=== PATIENT | male | born 1950 | race Caucasian/White ===

== ENCOUNTER 2017-08-22 07:59 | Inpatient (IN) | payer BC, MEDICARE ==
[~2017-08-22] VITALS: Ht 180.3 cm; Wt 117.0 kg
--- NOTE | 2017-08-22 08:10 | NUR ---
PT BIB FAMILY C/O RECTAL BLEEDING, BRIGHT RED, WHICH STARTED ON SUNDAY FOR MULTIPLE EPISODES, STOPPED ON SUNDAY, AND RESUMED BLEEDING THIS MORNING. DENIES N/V. DENIES URINARY SYMPTOMS. ABD SOFT, NON-TENDER. SKIN WARM NONDIAPHORETIC. CAP REFILL WNL. AMBULATORY WITH STEADY GAIT. NAD NOTED. IN ER BED 09 ON MONITOR.
[2017-08-22] MEDS ORDERED: ONDANSETRON HCL/PF 4 MG/2 ML VIAL ONE (08:22)
[2017-08-22] MEDS ORDERED: PANTOPRAZOLE 40 MG VIAL ONE (08:22)
[2017-08-22] MEDS ORDERED: PANTOPRAZOLE 40 MG VIAL IV ONE (08:30)
[2017-08-22] MEDS ORDERED: IV NS 0.9% 1,000 ML BAG IV ONE (08:30)
[2017-08-22] MEDS ORDERED: ONDANSETRON HCL/PF 4 MG/2 ML VIAL IVP ONE (08:30)
[2017-08-22 08:41] LABS: BASOPHILS # (AUTO) 0.1 /CMM (0.0-0.2); BASOPHILS % (AUTO) 0.7 % (0.0-2.0); EOSINOPHILS # (AUTO) 0.1 /CMM (0.0-0.7); EOSINOPHILS % (AUTO) 1.5 % (0.0-6.0); HEMATOCRIT 26 % (39-51); HEMOGLOBIN 8.3 g/dL (13.5-17.5); LYMPHOCYTES # (AUTO) 1.9 /CMM (0.8-4.8); LYMPHOCYTES % (AUTO) 22.9 % (20.0-44.0); MEAN CORPUSCULAR HEMOGLOBIN 28 PG (26.0-33.0); MEAN CORPUSCULAR HGB CONC 33 g/dl (31.0-36.0); MEAN CORPUSCULAR VOLUME 85 fL (80-96); MONOCYTES # (AUTO) 0.6 /CMM (0.1-1.30); MONOCYTES % (AUTO) 7.4 % (2.0-12.0); NEUTROPHILS # (AUTO) 5.6 /CMM (1.8-8.9); NEUTROPHILS % (AUTO) 67.5 % (43.0-81.0); PLATELET COUNT (AUTO) 298 /CMM (150-450); RDW COEFFICIENT OF VARIATION 16.7 (11.5-15.0); WHITE BLOOD COUNT (AUTO) 8.3 K/uL (4.3-11.0)
[2017-08-22 09:00] LABS: BILIRUBIN,TOTAL 0.2 mg/dL (0.2-1.0); POTASSIUM 3.9 mmol/L (3.5-5.1); TOTAL PROTEIN, SERUM 6.9 g/dL (6.4-8.2)
[2017-08-22 09:01] LABS: INR 0.88 (0.87-1.13); PROTHROMBIN TIME 9.1 SECS (9.5-12.7)
[2017-08-22 09:02] LABS: TROPONIN I 0.096 ng/mL (0.00-0.056)
--- NOTE | 2017-08-22 09:08 | NUR ---
PAGED [facility] --- MACHINE HOOP MAKER HELPER IS DR DAMON
--- NOTE | 2017-08-22 10:00 | NUR ---
RESTING QUIETLY, NAD NOTED. ALL NEEDS ATTENDED TO.
[2017-08-22] MEDS ORDERED: IV NS 0.9% 1,000 ML IV PRN (10:23)
[2017-08-22] MEDS ORDERED: Z GUARD REMEDY 2 OZ OINT TP PRN (10:30)
[2017-08-22] MEDS ORDERED: ACETAMINOPHEN 325 MG TABLET PO PRN (10:30)
[2017-08-22] MEDS ORDERED: ZOLPIDEM TARTRATE 5 MG TABLET PO PRN (10:30)
[2017-08-22] MEDS ORDERED: MAG HYDROX/AL HYDROX/SIMETH 30 ML UDC PO PRN (10:30)
[2017-08-22] MEDS ORDERED: HYDROCODONE/APAP 5/325MG 1 EACH TABLET PO PRN (10:30)
[2017-08-22] MEDS ORDERED: ONDANSETRON HCL/PF 4 MG/2 ML VIAL IVP PRN (10:30)
[2017-08-22] MEDS ORDERED: MAGNESIUM HYDROXIDE 30 ML UDC PO PRN (10:30)
--- NOTE | 2017-08-22 12:07 | NUR ---
RESTING QUIETLY, NAD NOTED. VERIFIED PT'S ADMISSION STATUS TO THE [facility] WITH DR DAMON. PT TRANSPORTED TO [facility] IN STABLE CONDITION VIA ACLS PROTOCOL
--- NOTE | 2017-08-22 12:20 | NUR ---
PRICING SUPERVISOR TO TELE RECEIVED PATIENT FROM E.D. DEPT. ALERT AND ORIENTED X4, NO S/SX OF DISTRESS AT THIS TIME, PER PATIENT LAST BLOODY STOOL WAS THIS AM AT HOME, PIV ON RIGHT AC AND LEFT HAND PATENT AND FLUSHES WELL, PATIENT DENIES FEELING LETHARGIC OF HEADACHE OR DIZZINESS, TELE MONITOR SHOWS NSR, SKIN ASSESSMENT COMPLETED, SKIN DRY AND INTACT, ALL NEEDS ATTENDED AND MET, CALL LIGHT WITHIN REACH, WILL CONTINUE TO MONITOR.
[2017-08-22 12:30] VITALS: BP 133/61
[2017-08-22] MEDS ORDERED: METF500T4 PO (15:25)
[2017-08-22] MEDS ORDERED: SITA100T PO (15:25)
[2017-08-22] MEDS ORDERED: PIOG30TA2 PO (15:25)
[2017-08-22] MEDS ORDERED: ATOR80TA PO (15:25)
[2017-08-22] MEDS ORDERED: METF10002 PO (15:25)
[2017-08-22] MEDS ORDERED: FENO54TA PO (15:25)
[2017-08-22] MEDS ORDERED: VALS160T2 PO (15:25)
[2017-08-22 16:00] VITALS: BP 130/76
--- NOTE | 2017-08-22 16:00 | NUR ---
[facility] COLEY MED RECONCILIATION INPUTTED, DR. DAMON MADE AWARE OF MED RECON LIST. Addendum: 08/22/17 at 1841 by SANA SANCHEZ RN CORRECTION: SUKH COLEY
[2017-08-22] MEDS ORDERED: hydrALAZINE HCL 25 MG TABLET PO PRN (18:00)
--- NOTE | 2017-08-22 18:39 | NUR ---
BOX OFFICE AGENT NOTES PATIENT SEEN AND EXAMINED BY DR. DAMON, RECEIVED NEW ORDERS. ORDERS NOTED AND CARRIED OUT. PATIENT IS SCHEDULED FOR COLONOSCOPY IN AM. PREPARATION TO START TONIGHT. PATIENT AWARE AND VERBALIZED UNDERSTANDING. IVF HYDRATION ONGOING AND TOLERATING WELL, ALL NEEDS ATTENDED AND MET, SAFETY MEASURES IN PLACED, WILL ENDORSE TO NIGHT CLEANER FOR ADAM. Addendum: 08/22/17 at 1842 by SANA SANCHEZ RN ADDENDUM: DR. DAMON MADE AWARE OF 2 BLOODY STOOLS DURING THIS SHIFT.
[2017-08-22] MEDS ORDERED: PEG 3350/NA SULF,BICARB,CL/KCL 4,000 ML BOTTLE PO ONE (19:00)
--- NOTE | 2017-08-22 19:20 | NUR ---
RN NOTES RECEIVED PT AWAKE, SITING IN BED. PT ALERT AND ORIENTED X4, DENIES ANY PAIN AND DISCOMFORT AT THIS TIME, ON ROOM AIR AND TOLERATED WELL. TELE MONITOR READS SINUS RHYTHM AT 96. IV ACCESS ON LEFT HAND PATENT AND INTACT WITH ONGOING IVF INFUSING WELL. PT IS AMBULATORY WITH STEADY GAIT. PLAN OF CARE DISCUSSED WITH THE PT. WILL CONTINUE TO MONITOR PT.
[2017-08-22 20:00] VITALS: BP 157/85
--- NOTE | 2017-08-22 20:40 | NUR ---
RN NOTES SPOKE TO DR ORLANDO TO GET AN ORDER OF COLONOSCOPY. SHE SAID TO GET THE ORDER TO DR CARMONA.
--- NOTE | 2017-08-22 21:00 | NUR ---
RN NOTES BEEN TRYING TO REACH DR CARMONA TO GET AN ORDER FOR COLONOSCOPY, NO ANSWER AND NO CALL BACK RECEIVED.
[2017-08-22 22:00] VITALS: BP 157/85
[2017-08-23] VITALS (10 sets, daily range): BP systolic 113–155; BP diastolic 55–95
[2017-08-23] MEDS ORDERED: MAGNESIUM CITRATE 296 ML BOTTLE PO ONE (05:00)
--- NOTE | 2017-08-23 06:15 | NUR ---
RN NOTES DR CUNNINGHAM MADE AWARE PT WAS REFFERED BY DR DAMON YESTERDAY AND HAS PLANNED COLONOSCOPY TODAY. PER DR CUNNINGHAM HE WILL DO EGD AND COLONOSCOPY TODAY AND WILL PLACE THE ORDER.
--- NOTE | 2017-08-23 07:15 | NUR ---
RN OPEN NOTES RECEIVED REPORT FROM THIRD OFFICER NURSE. PATIENT IS IN BED. PATIENT IS ALERT AND ORIENTED TO NAME, PLACE AND TIME. NO SIGNS AND SYMPTOMS OF DISTRESS. WILL CONTINUE TO MONITOR AND ASSESS PATIENT THROUGH OUT MY SHIFT
[2017-08-23 07:18] LABS: BASOPHILS % (AUTO) 0.2 % (0.0-2.0); EOSINOPHILS # (AUTO) 0.1 /CMM (0.0-0.7); EOSINOPHILS % (AUTO) 1.2 % (0.0-6.0); HEMATOCRIT 21 % (39-51); LYMPHOCYTES # (AUTO) 1.6 /CMM (0.8-4.8); MEAN CORPUSCULAR HEMOGLOBIN 28 PG (26.0-33.0); MEAN CORPUSCULAR HGB CONC 34 g/dl (31.0-36.0); MEAN CORPUSCULAR VOLUME 84 fL (80-96); MONOCYTES # (AUTO) 0.6 /CMM (0.1-1.30); MONOCYTES % (AUTO) 8.6 % (2.0-12.0); NEUTROPHILS # (AUTO) 4.5 /CMM (1.8-8.9); PLATELET COUNT (AUTO) 252 /CMM (150-450); RDW COEFFICIENT OF VARIATION 16.4 (11.5-15.0); RED BLOOD CELL COUNT(AUTO) 2.48 MIL/uL (4.5-6.0); WHITE BLOOD COUNT (AUTO) 6.8 K/uL (4.3-11.0)
--- NOTE | 2017-08-23 07:30 | NUR ---
RN NOTES PT AWAKE IN BED, DENIES ANY PAIN AND DISCOMFORT. VITAL SIGNS STABLE. NO EPISODE OF NAUSEA AND VOMITING. TELE MONITOR READS SINUS RHYTHM AT 92. KEPT PT ON NPO FOR PLANNED COLONOSCOPY TODAY, BM CLEAR. ALL NEEDS ATTENDED WILL CONTINUE TO MONITOR PT.
[2017-08-23 07:38] LABS: CALCIUM, SERUM 8.5 mg/dL (8.5-10.1); CREATININE 0.9 mg/dL (0.6-1.3); MAGNESIUM 1.7 mg/dL (1.8-2.4); PHOSPHORUS 3.4 mg/dL (2.5-4.9); POTASSIUM 3.9 mmol/L (3.5-5.1)
--- NOTE | 2017-08-23 08:15 | NUR ---
CONSENT SIGNED BY PATIENT AND PLACED IN THE CHART.
[2017-08-23] MEDS: PANTOPRAZOLE 40 MG VIAL IV SCH (08:25)
[2017-08-23] MEDS: VALSARTAN 80 MG TABLET PO SCH ×2 (08:26→08:32)
[2017-08-23] MEDS ORDERED: ATORVASTATIN 40 MG TABLET PO SCH (09:00)
--- NOTE | 2017-08-23 09:15 | NUR ---
PATIENT IS OFF THE FLOOR FOR PROCEDURE
--- NOTE | 2017-08-23 11:00 | NUR ---
PATIENT RETURNED TO FLOOR
[2017-08-23] MEDS ORDERED: Magnesium 1GM/D5W 100ML PREMIX 100 ML IV SCH (11:30)
--- NOTE | 2017-08-23 14:20 | NUR ---
DR DAMON AT BEDSIDE
[2017-08-23] MEDS: Magnesium 1GM/D5W 100ML PREMIX 100 ML IV SCH ×2 (15:05→16:30)
[2017-08-23] MEDS ORDERED: FUROSEMIDE 20 MG/2 ML VIAL IV ONE (15:31)
[2017-08-23 15:44] LABS: HEMOGLOBIN 8.5 g/dL (13.5-17.5)
[2017-08-23] MEDS: ATORVASTATIN 40 MG TABLET PO SCH (17:48)
--- NOTE | 2017-08-23 18:10 | NUR ---
DR DICKERSON AT BEDSIDE
--- NOTE | 2017-08-23 18:41 | NUR ---
RN CLOSING NOTES PATIENT IS ALERT AND ORIENTED TO NAME, PLACE AND TIME. NO SIGNS AND SYMPTOMS OF DISTRESS. IV SITE IS INTACT AND PATENT. BED IN LOW POSITION, LOCKED AND TWO SIDE RAILS ARE UP. CALL LIGHT WITHIN REACH FOR SAFETY. ALL NURSING CARE ANTICIPATED AND ATTENDED FOR. PATIENT REMAINED DRY AND CLEAN. WILL ENDORSE TO ASSISTANT MERCHANDISER NURSE
--- NOTE | 2017-08-23 19:30 | NUR ---
RN OPEN NOTES RECEIVED PATIENT AWAKE IN BED WITH FAMILY AT BEDSIDE. A/O X4. NO SIGNS OF DISTRESS OR DISCOMFORT. BREATHING EVEN AND UNLABORED. IV ACCESS IN L HAND WITH NS INFUSING, PATENT AND INTACT, NO SIGNS OF REDNESS OR INFILTRATION. BED IN LOW LOCKED POSITION WITH SIDE RAILS X2. CALL LIGHT WITHIN REACH. WILL CONTINUE TO MONITOR.
--- NOTE | 2017-08-24 06:49 | NUR ---
RN CLOSING NOTES PATIENT AWAKE IN BED WITH FAMILY AT BEDSIDE. A/O X4. NO SIGNS OF DISTRESS OR DISCOMFORT. BREATHING EVEN AND UNLABORED. IV ACCESS IN L HAND, PATENT AND INTACT, NO SIGNS OF REDNESS OR INFILTRATION. PATIENT REFUSING IVF AT THIS TIME. ALL NEEDS MET. NO SIGNIFICANT CHANGES THROUGH THE NIGHT. BED IN LOW LOCKED POSITION WITH SIDE RAILS X2. CALL LIGHT WITHIN REACH. WILL ENDORSE TO AM SHIFT FOR ADAM.
--- NOTE | 2017-08-24 07:20 | NUR ---
RN OPEN NOTES RECEIVED REPORT FROM LENS GRINDING MACHINE OPERATOR NURSE. PATIENT IS IN BED, AWAKE, ALERT AND ORIENTED TO NAME, PLACE AND TIME. NO SIGNS AND SYMPTOMS OF DISTRESS. DENIED PAIN. WILL CONTINUE TO MONITOR AND ASSES PATIENT THROUGH OUT MY SHIFT
[2017-08-24 07:22] LABS: BASOPHILS % (AUTO) 0.1 % (0.0-2.0); EOSINOPHILS # (AUTO) 0.1 /CMM (0.0-0.7); EOSINOPHILS % (AUTO) 1.5 % (0.0-6.0); HEMATOCRIT 25 % (39-51); HEMOGLOBIN 8.4 g/dL (13.5-17.5); LYMPHOCYTES # (AUTO) 1.5 /CMM (0.8-4.8); LYMPHOCYTES % (AUTO) 18.9 % (20.0-44.0); MEAN CORPUSCULAR HEMOGLOBIN 29 PG (26.0-33.0); MEAN CORPUSCULAR HGB CONC 34 g/dl (31.0-36.0); MEAN CORPUSCULAR VOLUME 85 fL (80-96); MONOCYTES # (AUTO) 0.6 /CMM (0.1-1.30); MONOCYTES % (AUTO) 7.4 % (2.0-12.0); NEUTROPHILS # (AUTO) 5.7 /CMM (1.8-8.9); NEUTROPHILS % (AUTO) 72.1 % (43.0-81.0); PLATELET COUNT (AUTO) 279 /CMM (150-450); RDW COEFFICIENT OF VARIATION 16.8 (11.5-15.0); RED BLOOD CELL COUNT(AUTO) 2.96 MIL/uL (4.5-6.0); WHITE BLOOD COUNT (AUTO) 7.8 K/uL (4.3-11.0)
[2017-08-24 07:40] LABS: CALCIUM, SERUM 8.4 mg/dL (8.5-10.1); PHOSPHORUS 3.3 mg/dL (2.5-4.9); POTASSIUM 3.7 mmol/L (3.5-5.1)
[2017-08-24 07:59] LABS: THYROID STIMULATING HORMONE 1.633 uIU/mL (0.358-3.74)
[2017-08-24 08:00] VITALS: BP 145/76
[2017-08-24] MEDS ORDERED: DIATR MEGLU/DIATRIZOATE SODIUM 120 ML BOTTLE (GASTROGRAPHIN) ONE ×2 (08:28→09:19)
[2017-08-24] MEDS: VALSARTAN 80 MG TABLET PO SCH (09:00)
--- NOTE | 2017-08-24 09:00 | NUR ---
PO MEDS HELD D/T PATIENT NPO FOR SMALL BOWEL XR
[2017-08-24] MEDS: PANTOPRAZOLE 40 MG VIAL IV SCH (11:13)
[2017-08-24 16:00] VITALS: BP 135/68
[2017-08-24] MEDS: ATORVASTATIN 40 MG TABLET PO SCH (17:11)
--- NOTE | 2017-08-24 18:44 | NUR ---
RN CLOSING NOTES PATIENT IS ALERT AND ORIENTED TO NAME, PLACE AND TIME. NO SIGNS AND SYMPTOMS OF DISTRESS. IV SITE IS INTACT AND PATENT. BED IN LOW POSITION, LOCKED AND TWO SIDE RAILS ARE UP. CALL LIGHT WITHIN REACH FOR SAFETY. ALL NURSING CARE ANTICIPATED AND ATTENDED FOR. PATIENT REMAINED DRY AND CLEAN. WILL ENDORSE TO COREMAKING MACHINE SETTER NURSE
--- NOTE | 2017-08-24 19:30 | NUR ---
RN NOTES RECEIVED PATIENT IN BED AWAKE, AO X 3, ABLE TO MAKE NEEDS KNOWN. NO ACUTE DISTRESS NOTED. DENIES ANY PAIN AT THIS TIME. IV SITE PATENT, INTACT; FLUSHED. ON LOW BED WITH BILATERAL UPPER SIDE RAILS UP. CALL LIGHT WITHIN EASY REACH. WILL CONTINUE TO MONITOR.
[2017-08-24 20:00] VITALS: BP_SYST 135; BP_SYST 145; BP_DIAS 68; BP_DIAS 72
--- NOTE | 2017-08-25 06:09 | NUR ---
RN NOTES PATIENT ASLEEP, EASILY AROUSABLE. RESPIRATIONS EVEN. NO SIGNS OF PAIN NOTED. NEEDS ATTENDED. SAFETY PRECAUTIONS AND COMFORT MEASURES IN PLACE. WILL GIVE REPORT TO DAY SHIFT FOR CONTINUITY OF CARE.
[2017-08-25 06:33] LABS: BASOPHILS % (AUTO) 0.4 % (0.0-2.0); EOSINOPHILS # (AUTO) 0.1 /CMM (0.0-0.7); EOSINOPHILS % (AUTO) 1.6 % (0.0-6.0); HEMATOCRIT 26 % (39-51); HEMOGLOBIN 8.5 g/dL (13.5-17.5); LYMPHOCYTES # (AUTO) 1.5 /CMM (0.8-4.8); LYMPHOCYTES % (AUTO) 20.1 % (20.0-44.0); MEAN CORPUSCULAR HEMOGLOBIN 28 PG (26.0-33.0); MEAN CORPUSCULAR HGB CONC 33 g/dl (31.0-36.0); MEAN CORPUSCULAR VOLUME 85 fL (80-96); MONOCYTES # (AUTO) 0.6 /CMM (0.1-1.30); MONOCYTES % (AUTO) 7.8 % (2.0-12.0); NEUTROPHILS # (AUTO) 5.3 /CMM (1.8-8.9); NEUTROPHILS % (AUTO) 70.1 % (43.0-81.0); PLATELET COUNT (AUTO) 291 /CMM (150-450); RDW COEFFICIENT OF VARIATION 16.8 (11.5-15.0); RED BLOOD CELL COUNT(AUTO) 3.05 MIL/uL (4.5-6.0); WHITE BLOOD COUNT (AUTO) 7.6 K/uL (4.3-11.0)
[2017-08-25 06:48] LABS: CALCIUM, SERUM 8.5 mg/dL (8.5-10.1); CREATININE 0.9 mg/dL (0.6-1.3); MAGNESIUM 1.8 mg/dL (1.8-2.4); PHOSPHORUS 3.9 mg/dL (2.5-4.9); POTASSIUM 3.9 mmol/L (3.5-5.1)
[2017-08-25 08:00] VITALS: BP 130/78
[2017-08-25 08:07] LABS: IMMUNOGLOBULIN A, SERUM 123 mg/dL (61-437); IMMUNOGLOBULIN G, SERUM 834 mg/dL (700-1600); IMMUNOGLOBULIN M, SERUM 124 mg/dL (20-172)
[2017-08-25 10:28] VITALS: BP 130/78
[2017-08-25] MEDS: VALSARTAN 80 MG TABLET PO SCH (10:28)
[2017-08-25] MEDS: PANTOPRAZOLE 40 MG VIAL IV SCH (10:28)
[2017-08-25] MEDS ORDERED: OMEP20TA68 PO (12:18)
[2017-08-25] MEDS ORDERED: FERR-58 PO (12:18)
[2017-08-25] MEDS ORDERED: SOD FERRIC GLUC 125 MG in IV NS 0.9% 100 ML IV SCH (14:00)
--- NOTE | 2017-08-25 15:20 | NUR ---
DR. DAMON IN PT. GIVEN DC ORDER.HAD IV FERLICETTE.DC INSTRUCTIONS GIVEN.HEP LOCK OUT. ALL PAPERS SIGNED.ADDITIONALLY HAS APPT. AT CLINIC FOR FOLLOW UP.TAKEN VIA W/C ACCOMPANIED BY INTELLIGENCE OPERATIONS SPECIALIST AND SIGNIFICANT OTHER TO LOBBY FOR DC.
[2017-08-27 07:07] LABS: *SPE ALPHA-1-GLOBULIN 0.3 g/dL (0.0-0.4); *SPE ALPHA-2-GLOBULIN 0.9 g/dL (0.4-1.0); *SPE BETA GLOBULIN 1.1 g/dL (0.7-1.3); *SPE M-SPIKE Not Observed g/dL (Not Observed); *SPEGAMMA GLOBULIN 0.7 g/dL (0.4-1.8)
== END 2017-08-25 15:15 | disposition home or self-care (01) | DRG 391 ==
LOC: ER 08:08 → TELE 12:11 → MED 08-23 08:48
PROVIDERS: ADMIT Internal Medicine; ATTEND Internal Medicine
PROC: 0DBP8ZX Excision of Rectum, Via Natural or Artificial Opening Endoscopic, Diagnostic (ICD-10-PCS; principal; 2017-08-23 09:59)
PROC: 0DBL8ZX Excision of Transverse Colon, Via Natural or Artificial Opening Endoscopic, Diagnostic (ICD-10-PCS; principal; 2017-08-23 09:59)
PROC: 30233N1 Transfusion of Nonautologous Red Blood Cells into Peripheral Vein, Percutaneous Approach (ICD-10-PCS; principal; 2017-08-23 09:59)
PROC: 0DBM8ZX Excision of Descending Colon, Via Natural or Artificial Opening Endoscopic, Diagnostic (ICD-10-PCS; principal; 2017-08-23 09:59)
PROC: 0DD68ZX Extraction of Stomach, Via Natural or Artificial Opening Endoscopic, Diagnostic (ICD-10-PCS; principal; 2017-08-23 09:59)
DX: K57.30 Diverticulosis of large intestine without perforation or abscess without bleeding (principal); I21.A1 Myocardial infarction type 2; E87.0 Hyperosmolality and hypernatremia; E44.1 Mild protein-calorie malnutrition; E11.9 Type 2 diabetes mellitus without complications; D50.9 Iron deficiency anemia, unspecified; E66.9 Obesity, unspecified; E78.5 Hyperlipidemia, unspecified; I10 Essential (primary) hypertension; K21.9 Gastro-esophageal reflux disease without esophagitis; Z91.018 Allergy to other foods; I70.0 Atherosclerosis of aorta; Z96.652 Presence of left artificial knee joint; Z82.49 Family history of ischemic heart disease and other diseases of the circulatory system; Z79.52 Long term (current) use of systemic steroids; Z79.84 Long term (current) use of oral hypoglycemic drugs; K63.5 Polyp of colon; K64.8 Other hemorrhoids; K42.9 Umbilical hernia without obstruction or gangrene; K29.60 Other gastritis without bleeding
CPT/HCPCS: 36415; 74250-TC; 80048-TC; 80061-TC; 80076-TC; 82728-TC; 82746; 82784; 83540-TC; 83690-TC; 83735-TC; 84100-TC; 84155; 84165; 84443-TC; 84484-TC; 85025-TC; 85027-TC; 85730-TC; 86334; 86850-TC; 86921-TC; 87081-TC; 88305-TC; 88313-TC; 88342; 93307-TC; A4606; C9113; J1940; J2405; J2704; J2916; J3475; J3490; J7030; P9016-BL; Q9963; Z7610

== ENCOUNTER 2017-12-02 09:25 | Inpatient (IN) | payer BC, MEDICARE ==
[~2017-12-02] VITALS: Ht 177.8 cm; Wt 114.8 kg
[2017-12-02] VITALS (7 sets, daily range): BP systolic 119–145; BP diastolic 60–77
[~2017-12-02 09:25] MED LIST: ATOR80TA PO; FENO54TA PO; FERR325T23 PO; METF10002 PO; METF500T4 PO; OMEP20TA5 PO; PIOG30TA10 PO; SITA100T PO; VALS160T2 PO
--- NOTE | 2017-12-02 09:30 | NUR ---
PT CAME TO ER W/ C/O BLOODY DIARRHEA X 3 DAYS, FEELING WEAK AND DIZZY. PT HAS A H/O DIVERTICULTIS. DENIES ANY PAIN AT THIS TIME. PT AMBULATORY IN A STEADY GAIT TO ED BED 04. NAD RR EVEN AND UNLABORED. SKIN IS WARM AND NON DIAPHORETIC. PENDING ER MD EVALUATION
--- NOTE | 2017-12-02 09:34 | NUR ---
DR DAVIS AT BEDSIDE FOR EVALUATION.
[2017-12-02] MEDS ORDERED: PANTOPRAZOLE 80 MG in IV NS 0.9% 500 ML IV ONE (10:00)
[2017-12-02] MEDS ORDERED: PANTOPRAZOLE 80 MG in IV NS 0.9% 100 ML IV ONE (10:00)
[2017-12-02] MEDS ORDERED: IV NS 0.9% 1,000 ML BAG IV ONE (10:00)
[2017-12-02 10:02] LABS: BASOPHILS # (AUTO) 0.2 /CMM (0.0-0.2); BASOPHILS % (AUTO) 1.7 % (0.0-2.0); EOSINOPHILS # (AUTO) 0.1 /CMM (0.0-0.7); LYMPHOCYTES # (AUTO) 2.2 /CMM (0.8-4.8); LYMPHOCYTES % (AUTO) 15.9 % (20.0-44.0); MEAN CORPUSCULAR HEMOGLOBIN 27 PG (26.0-33.0); MEAN CORPUSCULAR HGB CONC 33 g/dl (31.0-36.0); MEAN CORPUSCULAR VOLUME 83 fL (80-96); MONOCYTES # (AUTO) 0.6 /CMM (0.1-1.30); MONOCYTES % (AUTO) 4.6 % (2.0-12.0); NEUTROPHILS # (AUTO) 10.6 /CMM (1.8-8.9); NEUTROPHILS % (AUTO) 76.8 % (43.0-81.0); PLATELET COUNT (AUTO) 497 /CMM (150-450); RDW COEFFICIENT OF VARIATION 15.4 (11.5-15.0); RED BLOOD CELL COUNT(AUTO) 2.32 MIL/uL (4.5-6.0); WHITE BLOOD COUNT (AUTO) 13.7 K/uL (4.3-11.0)
[2017-12-02 10:07] LABS: HEMOGLOBIN 6.3 g/dL (13.5-17.5)
[2017-12-02 10:08] LABS: HEMATOCRIT 19 % (39-51)
[2017-12-02 10:11] LABS: CALCIUM, SERUM 8.4 mg/dL (8.5-10.1); CREATININE 1.1 mg/dL (0.6-1.3); POTASSIUM 3.6 mmol/L (3.5-5.1)
[2017-12-02 10:15] LABS: INR 0.92 (0.85-1.15)
[2017-12-02 10:17] LABS: ALBUMIN 2.5 g/dL (3.4-5.0); BILIRUBIN,DIRECT 0.1 mg/dL (0.0-0.2); BILIRUBIN,TOTAL 0.2 mg/dL (0.2-1.0); TOTAL PROTEIN, SERUM 7.1 g/dL (6.4-8.2)
[2017-12-02] MEDS ORDERED: FERR325T23 PO (10:17)
[2017-12-02] MEDS ORDERED: BENZ-38 PO (10:17)
[2017-12-02 10:19] LABS: TROPONIN I 0.073 ng/mL (0.00-0.056)
--- NOTE | 2017-12-02 10:36 | NUR ---
PAN[employer]ES EXEC PAGED.
[2017-12-02] MEDS ORDERED: ZOLPIDEM TARTRATE 5 MG TABLET PO PRN (11:00)
[2017-12-02] MEDS ORDERED: MAGNESIUM HYDROXIDE 30 ML UDC PO PRN (11:00)
[2017-12-02] MEDS ORDERED: MAG HYDROX/AL HYDROX/SIMETH 30 ML UDC PO PRN (11:00)
[2017-12-02] MEDS ORDERED: *INSULIN REGULAR(HUMULIN R)HUM 100 UNIT/ML VIAL SQ PRN (11:00)
[2017-12-02] MEDS ORDERED: ACETAMINOPHEN 325 MG TABLET PO PRN (11:00)
[2017-12-02] MEDS ORDERED: HYDROCODONE/APAP 5/325MG 1 EACH TABLET PO PRN (11:00)
[2017-12-02] MEDS ORDERED: DEXTROSE 50%-WATER 50 ML DISP.SYRIN IV PRN (11:00)
[2017-12-02] MEDS ORDERED: ONDANSETRON HCL/PF 4 MG/2 ML VIAL IVP PRN (11:00)
[2017-12-02] MEDS ORDERED: Z GUARD REMEDY 2 OZ OINT TP PRN (11:00)
[2017-12-02 11:08] LABS: BAND % (MANUAL) 1 % (0.0-5.0); EOSINOPHILS % (MANUAL) 2 % (0-4); LYMPHOCYTES % (MANUAL) 18 % (16-48); MONOCYTES % (MANUAL) 6 % (0-11.0); NEUTROPHILS % (MANUAL) 73 (42-76)
[2017-12-02 11:11] LABS: BASOPHILS % (AUTO) 0.3 % (0.0-2.0); EOSINOPHILS # (AUTO) 0.1 /CMM (0.0-0.7); EOSINOPHILS % (AUTO) 1.2 % (0.0-6.0); LYMPHOCYTES # (AUTO) 1.6 /CMM (0.8-4.8); LYMPHOCYTES % (AUTO) 13.8 % (20.0-44.0); MEAN CORPUSCULAR HEMOGLOBIN 29 PG (26.0-33.0); MEAN CORPUSCULAR HGB CONC 34 g/dl (31.0-36.0); MEAN CORPUSCULAR VOLUME 84 fL (80-96); MONOCYTES # (AUTO) 0.5 /CMM (0.1-1.30); MONOCYTES % (AUTO) 4.3 % (2.0-12.0); NEUTROPHILS # (AUTO) 9.6 /CMM (1.8-8.9); NEUTROPHILS % (AUTO) 80.4 % (43.0-81.0); PLATELET COUNT (AUTO) 413 /CMM (150-450); RDW COEFFICIENT OF VARIATION 14.9 (11.5-15.0); WHITE BLOOD COUNT (AUTO) 11.8 K/uL (4.3-11.0)
[2017-12-02 11:14] LABS: HEMATOCRIT 17 % (39-51); HEMOGLOBIN 5.7 g/dL (13.5-17.5)
--- NOTE | 2017-12-02 11:32 | NUR ---
gave report to flakita sousa 111-[address] cantrell admitting
--- NOTE | 2017-12-02 12:05 | NUR ---
RN NOTE RECEIVED PT ON BED, ABLE TO AMBULATE, AOX4, DENIES PAIN, VS STABLE, NO SOB, R HAND IV IN PLACE, PUT TELEMONITOR ON, SR 84, SKIN INTACT. AWAITING FOR BLOOD TRANSFUSION, CALL LIGHT WITHIN REACH, WILL MONITOR.
[2017-12-02] MEDS: BLOOD SUGAR DIAGNOSTIC 1 EACH STRIP VI SCH ×3 (12:41→21:12)
[2017-12-02] MEDS: IV D5/0.45 NACL 1,000 ML IV PRN (12:46)
--- NOTE | 2017-12-02 16:00 | NUR ---
RN NOTE PT RECEIVED 1 UNIT OF PRBCS, TOLERATED WELL, NO REACTION NOTED. WILL MONITOR PT.
--- NOTE | 2017-12-02 19:40 | NUR ---
RN WALE INITIAL NOTES, RECEIVED PATIENT IN BED, ALERT AND ORIENTED,ABLE TO LET NEEDS KNOW, BREATHING EVEN AND UNLABORED AT RA, NO S/S OF DISCOMFORT/SOB AT THIS TIME, IVF RUNNING WELL AND PATIENT TOLERATED WELL, IV SITE INTACT AND PATENT, NO S/S OF INFILTRATION, NO BLEEDING NOTED AT THIS TIME, ALSO PROTONIX DRIP RUNNING AT THIS TIME, PATIENT TOLERATED WELL, ALL NEEDS PROVIDED AN ANTICIPATED, BED LOCKED AND LOW POSITION, AT BEDSIDE AT THIS TIME CALL LIGHT W/I REACH, WILL CONTINUE TO MONITOR CLOSELY,
[2017-12-02] MEDS: PANTOPRAZOLE 40 MG VIAL IV SCH (21:04)
[2017-12-02 21:08] LABS: MEAN CORPUSCULAR HEMOGLOBIN 27 PG (26.0-33.0); MEAN CORPUSCULAR HGB CONC 33 g/dl (31.0-36.0); MEAN CORPUSCULAR VOLUME 83 fL (80-96); PLATELET COUNT (AUTO) 387 /CMM (150-450); WHITE BLOOD COUNT (AUTO) 10.8 K/uL (4.3-11.0)
[2017-12-02] MEDS: INSULIN REGULAR, HUMAN 100 UNIT/ML 3 ML VIAL SQ PRN (21:12)
[2017-12-02 21:37] LABS: HEMATOCRIT 17 % (39-51); HEMOGLOBIN 5.7 g/dL (13.5-17.5)
--- NOTE | 2017-12-02 21:50 | NUR ---
RN WALE NOTES, RECEIVED A CALL FROM AMBER DAVIS INFORMING CRITICAL LAB VALUES FOR H&H (5.7: 17.0), WILL INFORM .
--- NOTE | 2017-12-02 21:55 | NUR ---
RN WALE NOTES, PLACE A CALL TO MD BALL HOLDER (MARILOU MUSTAFA M.D) AND INFORMED ABOUT THE CRITICAL LABS FRO H&H REPORTED FROM LAB, AND INFORMED HIM THAT ACCORDING TO THE EARLIER RESULTS AND AFTER THE ADMINISTRATION OF ON UNIT OF BLOOD H&H CONTINUE SAME LEVEL, MD ASKED ID THERE WERE INDICATIONS OF BLEEDING, AND INFORMED THAT NO ACTIVE BLEEDING IS NOTED AT THIS TIME, MD REPLIED WITH NO NEW ORDER AT THIS TIME, AND DO CBC IN THE MORNING, NOTED CARRIED OUT,
[2017-12-03] VITALS (16 sets, daily range): BP systolic 105–137; BP diastolic 50–78
[2017-12-03 03:48] LABS: BASOPHILS % (AUTO) 0.1 % (0.0-2.0); EOSINOPHILS # (AUTO) 0.2 /CMM (0.0-0.7); EOSINOPHILS % (AUTO) 1.5 % (0.0-6.0); LYMPHOCYTES % (AUTO) 15.5 % (20.0-44.0); MEAN CORPUSCULAR HEMOGLOBIN 27 PG (26.0-33.0); MEAN CORPUSCULAR HGB CONC 33 g/dl (31.0-36.0); MEAN CORPUSCULAR VOLUME 83 fL (80-96); MONOCYTES # (AUTO) 0.7 /CMM (0.1-1.30); MONOCYTES % (AUTO) 5.7 % (2.0-12.0); NEUTROPHILS % (AUTO) 77.2 % (43.0-81.0); PLATELET COUNT (AUTO) 423 /CMM (150-450); RDW COEFFICIENT OF VARIATION 16.3 (11.5-15.0); RED BLOOD CELL COUNT(AUTO) 2.32 MIL/uL (4.5-6.0); WHITE BLOOD COUNT (AUTO) 12.9 K/uL (4.3-11.0)
[2017-12-03 04:01] LABS: CALCIUM, SERUM 8.4 mg/dL (8.5-10.1); CREATININE 0.9 mg/dL (0.6-1.3); MAGNESIUM 1.5 mg/dL (1.8-2.4); PHOSPHORUS 3.4 mg/dL (2.5-4.9); POTASSIUM 3.7 mmol/L (3.5-5.1)
--- NOTE | 2017-12-03 04:05 | NUR ---
RN WALE NOTES, RECEIVED A CALL FROM CARLITOS FROM LAB AND REPORT CRITICAL H&H LEVEL (6.4:19.0), REPORTED TO MD THE PRIOR LEVEL (5.7:17.0) AND HE DID NOT ORDER TRANSFUSION THIS TIME H&H LEVEL INCREASED, WILL CONTINUE TO MONITOR CLOSELY.
[2017-12-03 04:06] LABS: HEMATOCRIT 19 % (39-51); HEMOGLOBIN 6.4 g/dL (13.5-17.5)
[2017-12-03 04:22] LABS: LYMPHOCYTES % (MANUAL) 18 % (16-48); MONOCYTES % (MANUAL) 3 % (0-11.0); NEUTROPHILS % (MANUAL) 79 (42-76)
[2017-12-03] MEDS: IV D5/0.45 NACL 1,000 ML IV PRN (06:09)
--- NOTE | 2017-12-03 06:30 | NUR ---
RN WALE NOTES, PATIENT AWAKE ALERT AND ORIENTED, BREATHING EVEN AND UNLABORED, NO SIGNIFICANT CHANGE IN CONDITION THROUGHOUT THE SHIFT, AWAITING FOR PROCEDURE, H&H STILL LOW, MD AWARE, ROGE MIDLINE AND PIV SITE IN RIGHT HAND INTACT AND PATENT IVF RUNNING WELL, NO S/S OF INFILTRATION NOTED, BED LOCKED AN DIN LOW POSITION, CALL LIGHT W/I REACH, WILL ENDORSE CONTINUITY OF CARE TO ONCOMING NURSE.
[2017-12-03] MEDS: BLOOD SUGAR DIAGNOSTIC 1 EACH STRIP VI SCH ×4 (08:47→21:49)
[2017-12-03] MEDS: PANTOPRAZOLE 40 MG VIAL IV SCH ×2 (08:48→21:49)
--- NOTE | 2017-12-03 09:20 | NUR ---
WALE RN NOTE PT STABLE A/O X4. PT TAKEN FOR EGD. NO C/O PAIN. CONSENT SIGNED. PT STABLE. V/S WNL OF PT BASELINE.
[2017-12-03 12:11] LABS: MEAN CORPUSCULAR HEMOGLOBIN 27 PG (26.0-33.0); MEAN CORPUSCULAR HGB CONC 32 g/dl (31.0-36.0); MEAN CORPUSCULAR VOLUME 84 fL (80-96); PLATELET COUNT (AUTO) 379 /CMM (150-450); RED BLOOD CELL COUNT(AUTO) 2.18 MIL/uL (4.5-6.0); WHITE BLOOD COUNT (AUTO) 9.6 K/uL (4.3-11.0)
[2017-12-03 12:18] LABS: HEMATOCRIT 18 % (39-51)
[2017-12-03 12:20] LABS: HEMOGLOBIN 5.9 g/dL (13.5-17.5)
[2017-12-03] MEDS: Magnesium 1GM/D5W 100ML PREMIX 100 ML IV SCH ×2 (13:58→15:09)
--- NOTE | 2017-12-03 15:50 | NUR ---
WALE RN NOTE PT STABLE NO C/O PAIN OR SOB. BEGINNING 1 UNIT OF PRBC. V/S WNL.
[2017-12-03] MEDS: INSULIN REGULAR, HUMAN 100 UNIT/ML 3 ML VIAL SQ PRN (17:22)
--- NOTE | 2017-12-03 18:20 | NUR ---
WALE RN NOTE S/P 1 UNIT OF PRBC. PATIENT TOLERATED UNIT WELL. V/S WNL. NO C/O CHEST PAIN OR SOB. 1 UNIT OF PRBC REMAINING.
[2017-12-03 19:25] LABS: HEMATOCRIT 21 % (39-51); MEAN CORPUSCULAR HEMOGLOBIN 28 PG (26.0-33.0); MEAN CORPUSCULAR HGB CONC 33 g/dl (31.0-36.0); MEAN CORPUSCULAR VOLUME 86 fL (80-96); PLATELET COUNT (AUTO) 409 /CMM (150-450); RED BLOOD CELL COUNT(AUTO) 2.45 MIL/uL (4.5-6.0); WHITE BLOOD COUNT (AUTO) 10.6 K/uL (4.3-11.0)
--- NOTE | 2017-12-03 20:03 | NUR ---
RN NOTE STARTED 2ND UNIT OF BLOOD TRANSFUSION, NO REACTION NOTED, VITAL SIGNS STABLE, NO SOB, NO CHILLS OR FEVER
--- NOTE | 2017-12-03 20:18 | NUR ---
RN NOTE BLOOD TRANSFUSION TOLERATES WELL, SITTING IN THE CHAIR, NO CHILLS OR FEVER, NO SOB, NO HYPOTENSION, PATIENT IS STABLE
--- NOTE | 2017-12-03 20:45 | NUR ---
RN NOTE RECEIVED PATIENT SITTING IN THE BED, ALERT/ORIENTED X 4, ABLE TO COMMUNICATE HIS NEEDS, NO RESPIRATORY DISTRESS NOTED, DENIES PAIN OR DISCOMFORT, GENERALIZED WEAKNESS DURING ACTIVITY, 2ND UNIT OF BLOOD WILL BE ADMINISTERED, NO ACTIVE BLEEDING NOTED, ALL SAFETY MEASURES TAKEN, BED IN THE LOWEST POSITION, CALL LIGHT WITHIN REACH, WILL CONTINUE TO MONITOR PATIENT
--- NOTE | 2017-12-03 21:44 | NUR ---
RN NOTE NO REACTION NOTED, PATIENT TOLERATES BLOOD TRANSFUSION WELL, SITTING IN THE CHAIR, VITAL SIGNS STABLE, NO SOB, NO HYPOTENSION, NO CHILLS OR FEVER NOTED
--- NOTE | 2017-12-03 22:00 | NUR ---
RN NOTE TOLERATED BLOOD TRANSFUSION WELL, NO RESPIRATORY DISTRESS NOTED, NO TRANSFUSION REACTION NOTED, NO SOB, NO PAIN OR DISCOMFORT, NO HYPOTENSION, TRANSFUSION ENDED, LAST SET OF VITAL SIGNS TAKEN, BACK TO BED, PATIENT IS STABLE
--- NOTE | 2017-12-03 23:35 | NUR ---
RN NOTE DOCTOR MOON ALMENDAREZ IS BY BEDSIDE, ORDERED TO DC IV FLUIDS D5 1/2 NS, ORDER CARRIED OUT
[2017-12-04] VITALS (14 sets, daily range): BP systolic 107–130; BP diastolic 54–82
--- NOTE | 2017-12-04 06:56 | NUR ---
RN NOTE NO ACUTE CHANGES DURING MY SHIFT, NO S/S OF BLEEDING NOTED, TRANSFUSED 1 UNIT OF PRBC ON MY SHIFT, AND PATIENT RECEIVED 1 UNIT OF PRBC ON PREVIOUS SHIFT, TOTAL OF 2 UNITS OF PRBC, BLEEDING PRECAUTIONS TAKEN, NO RESPIRATORY DISTRESS NOTED, ALERT/ORIENTED X 3, SLEPT WELL AT NIGHT, MOTIVATED TO SELF CARE, AMBULATORY, ENCOURAGED TO USE CALL LIGHT WHEN NEED TO USE A BATHROOM, SR 92, SKIN IS INTACT, ROGE MIDLINE AND R HAND 20 GAUGE, IV SITES ARE INTACT, NO S/S OF INFECTION/INFILTRATION NOTED, NO RESPIRATORY DISTRESS NOTED, DOCTOR MOON ZAMARRIPA DC IV FLUIDS, KEPT PATIENT COMFORTABLE, ALL SAFETY MEASURES TAKEN, CALL LIGHT WITHIN REACH, ALL BELONGIMGD WITHIN REACH, BED IN THE LOWEST POSITION, SIDE RAILS UP X 2, PATIENT'S CHECK ROUNDING WERE DONE Q 1 HOUR, WILL ENDORSE TO AM SHIFT TO CONTINUE CARE
--- NOTE | 2017-12-04 07:00 | NUR ---
RN NOTE RECEIVED PATIENT SITTING IN ON A CHAIR, A/Ox4, ON RA RESPIRATION EVEN AND UNLABORED, ON TELE SR WITH PVC'S , L UPPER ARM MIDLINE AND R HAND IV SITES CDI, PT STATED HAD ONE LARGE BLOODY STOOL THIS AM, WILL NOTIFY , PT BIJU ANY DISTRESS AT THIS TIME ,ALL SAFETY MEASURES TAKEN, , CALL LIGHT WITHIN EASY REACH, WILL CONTINUE TO MONITOR PATIENT CLOSELY.
[2017-12-04 07:09] LABS: CREATININE 0.9 mg/dL (0.6-1.3); MAGNESIUM 1.7 mg/dL (1.8-2.4); POTASSIUM 3.5 mmol/L (3.5-5.1)
--- NOTE | 2017-12-04 08:00 | NUR ---
RN NOTES DR DAMON NOTIFED REGARDING BLOODY STOOL THIS AM , CONTINUE TO MONITOR .
[2017-12-04] MEDS: INSULIN REGULAR, HUMAN 100 UNIT/ML 3 ML VIAL SQ PRN ×2 (08:04→16:50)
[2017-12-04] MEDS: PANTOPRAZOLE 40 MG VIAL IV SCH (08:05)
[2017-12-04] MEDS: BLOOD SUGAR DIAGNOSTIC 1 EACH STRIP VI SCH ×4 (08:05→21:21)
[2017-12-04 09:03] LABS: BASOPHILS % (AUTO) 0.4 % (0.0-2.0); EOSINOPHILS # (AUTO) 0.2 /CMM (0.0-0.7); EOSINOPHILS % (AUTO) 2.1 % (0.0-6.0); HEMATOCRIT 23 % (39-51); HEMOGLOBIN 7.6 g/dL (13.5-17.5); LYMPHOCYTES # (AUTO) 1.5 /CMM (0.8-4.8); LYMPHOCYTES % (AUTO) 13.1 % (20.0-44.0); MEAN CORPUSCULAR HEMOGLOBIN 28 PG (26.0-33.0); MEAN CORPUSCULAR HGB CONC 33 g/dl (31.0-36.0); MEAN CORPUSCULAR VOLUME 85 fL (80-96); MONOCYTES # (AUTO) 0.6 /CMM (0.1-1.30); MONOCYTES % (AUTO) 5.7 % (2.0-12.0); NEUTROPHILS # (AUTO) 8.9 /CMM (1.8-8.9); NEUTROPHILS % (AUTO) 78.7 % (43.0-81.0); PLATELET COUNT (AUTO) 387 /CMM (150-450); RDW COEFFICIENT OF VARIATION 16.3 (11.5-15.0); RED BLOOD CELL COUNT(AUTO) 2.69 MIL/uL (4.5-6.0); WHITE BLOOD COUNT (AUTO) 11.3 K/uL (4.3-11.0)
--- NOTE | 2017-12-04 12:00 | NUR ---
RN NOTES PT SITTING UP ON A CHAIR, STABLE , SUPPORTIVE FAMILY AT THE BEDSIDE, CONTINUE TO MONITOR
[2017-12-04] MEDS: Magnesium 1GM/D5W 100ML PREMIX 100 ML IV SCH ×2 (12:01→12:56)
[2017-12-04] MEDS ORDERED: BENZONATATE 100 MG CAPSULE PO PRN (14:30)
[2017-12-04] MEDS ORDERED: PANTOPRAZOLE 40 MG TABLET.DR PO SCH (14:30)
[2017-12-04] MEDS: Fenofibrate 48 MG TABLET PO SCH (14:56)
[2017-12-04 15:53] LABS: BASOPHILS # (AUTO) 0.1 /CMM (0.0-0.2); BASOPHILS % (AUTO) 0.5 % (0.0-2.0); EOSINOPHILS # (AUTO) 0.2 /CMM (0.0-0.7); HEMATOCRIT 22 % (39-51); HEMOGLOBIN 7.1 g/dL (13.5-17.5); LYMPHOCYTES # (AUTO) 1.5 /CMM (0.8-4.8); LYMPHOCYTES % (AUTO) 14.8 % (20.0-44.0); MEAN CORPUSCULAR HEMOGLOBIN 28 PG (26.0-33.0); MEAN CORPUSCULAR HGB CONC 33 g/dl (31.0-36.0); MEAN CORPUSCULAR VOLUME 85 fL (80-96); MONOCYTES # (AUTO) 0.5 /CMM (0.1-1.30); MONOCYTES % (AUTO) 5.5 % (2.0-12.0); NEUTROPHILS # (AUTO) 7.7 /CMM (1.8-8.9); NEUTROPHILS % (AUTO) 77.2 % (43.0-81.0); PLATELET COUNT (AUTO) 402 /CMM (150-450); RDW COEFFICIENT OF VARIATION 16.5 (11.5-15.0); RED BLOOD CELL COUNT(AUTO) 2.55 MIL/uL (4.5-6.0)
[2017-12-04] MEDS: FERROUS SULFATE (325 MG) 325 MG/TAB TABLET PO SCH (16:22)
--- NOTE | 2017-12-04 18:00 | NUR ---
RN NOTES AWAITING FOR BLOOD TO BE READY , PT BIJU ANY DISTRESS AT THIS TIME , RESPIRATION EVEN AND UNLABORED, WILL ENDORSE TO LOFT WORKER APPRENTICE NURSE FOR ADAM .
--- NOTE | 2017-12-04 19:55 | NUR ---
RN INITIAL NOTES: RECEIVED REPORT FROM ALEJANDRO LUZ, PT IN BED AWAKE, A/O X4, ON RA RESPIRATION EVEN AND UNLABORED, DENIES ANY PAIN OR DISCOMFORT AT THIS TIME. ROGE MIDLINE PATENT AND FLUSHING WELL, BUT NO BLOOD RETURN NOTED. RIGHT HAND IV ACCESS PATENT AND FLUSHING WELL, ON HL. PT WILL HAVE BLOOD TRANSFUSION TONIGHT. ON TELE MONITOR SINUS RHYTHM HR 90, AND GOES UP TP SINUS TACH WHEN AMBULATING. SAFETY PRECAUTIONS FOR FALL INITIATED CALL LIGHT IN REACH WILL CONTINUE TO MONITOR
--- NOTE | 2017-12-04 20:48 | NUR ---
BLOOD TRANSFUSION: STARTED 1UNIT OF PRBC TRANSFUSION FOR THE PT AT A RATE OF 95.6 (297ML) FOR 30MINS THEN IF NO REACTION OCCURS AND VS WILL REMAIN STABLE, THEN RATE WILL BE INCREASE IN ORDER TO TRANSFUSE FOR NOT LONGER THAN 3HRS. CONSENT FOR BT SECURED AND VERIFICATION COSIGNED BY SUKH ONTIVEROS. VS TAKEN AND RECORDED, WILL STAY WITH THE PT FOR 30MINS TO MONITOR/OBSERVE FOR ANY BLOOD TRANSFUSION REACTION. WILL CONTINUE MONITORING PT
[2017-12-04] MEDS: PANTOPRAZOLE 40 MG TABLET.DR PO SCH (21:21)
--- NOTE | 2017-12-04 21:23 | NUR ---
BS 132: BLOOD SUGAR CHECK AND RESULT IS 132, 2UNITS OF INSULIN GIVEN PER SLIDING SCALE, PT TOLERATING PO INTAKE ON CCHO DIET, WILL MONITOR FOR ANY S/S OF HYPOGLYCEMIA
--- NOTE | 2017-12-04 21:30 | NUR ---
RN NOTES: NO BLOOD TRANSFUSION REACTION NOTED FOR THE FIRST 15-30MINS OF STAYING WITH THE PT. VS STABLE, NO COMPLAINTS FROM THE PT. WILL CONTINUE MONITORING
--- NOTE | 2017-12-04 23:08 | NUR ---
COMPLETED BLOOD TRANSFUSION: 1UNIT OF PRBC COMPLETED TRANSFUSING, NO BLOOD TRANSFUSION REACTION NOTED, VSS, NO FURTHER COMPLAINTS, WILL CONTINUE MONITORING THE PT
--- NOTE | 2017-12-04 23:13 | NUR ---
PRN AMBIEN: PT REQUESTED FOR SLEEPING AID, PRN AMBIEN ADMINISTERED ORDERED
[2017-12-05] VITALS: BP 125/72
--- NOTE | 2017-12-05 02:29 | NUR ---
RN NOTES: PER FARMER AND GRAZIER PT HAS EPISODE OF 4SEC VTACH, WENT TO CHECK ON THE PT, PT AROUSES EASILY DENIES ANY HEAD ACHE DIZZINESS OR CHEST PAIN, STATED HE'S FEELING OKAY, RHYTHM WENT BACK TO SINUS RHYTHM HR 92, WILL CONTINUE MONITORING PT
[2017-12-05 04:00] VITALS: BP 115/54
[2017-12-05] MEDS: INSULIN REGULAR, HUMAN 100 UNIT/ML 3 ML VIAL SQ PRN (05:52)
[2017-12-05] MEDS: BLOOD SUGAR DIAGNOSTIC 1 EACH STRIP VI SCH ×2 (05:52→11:20)
--- NOTE | 2017-12-05 05:54 | NUR ---
BS 109: BLOOD SUGAR CHECKED AND REVEAL 109, NO INSULIN COVERAGE GIVEN PER SLIDING SCALE, WILL MONITOR PT FOR ANY S/S OF HYPOGLYCEMIA
--- NOTE | 2017-12-05 06:46 | NUR ---
RN CLOSING NOTES: PT IN BED, AWAKE, DENIES ANY PAIN OR DISCOMFORT THROUGHOUT THE SHIFT, IV ACCESS REMAINS PATENT AND FLUSHING WELL, BOTH ON HL. VS REMAINS STABLE, NO S/S OF ACTIVE BLEEDING NOTED. S/P 1UNIT PRBC WITHOUT ANY TRANSFUSION REACTION NOTED. VS REMAINS STABLE, NEEDS ATTENDED. REMAINS SINUS RHYTHM HR 89. SAFETY PRECAUTIONS FOR FALL REMAINS ENGAGED, CALL LIGHT IN REACH. WILL ENDORSE TO DAY RN FOR ADAM.
--- NOTE | 2017-12-05 07:24 | NUR ---
RECYCLING CENTER OPERATOR NOTES RECEIVED PT ON BED. ALERT ORIENTED X4. ON TELE MONITOR SR. ON ROOM AIR SATURATING WELL. IV ACCESS ON ROGE MIDLINE AND RHAND [id number]. HEAD OF BED ELEVATED. SIDE RAILS UP. BED ALARM ON. CALL LIGHT WITHIN REACH. WILL CONTINUE TO MONITOR PT CLOSELY.
[2017-12-05 07:33] LABS: BASOPHILS % (AUTO) 0.3 % (0.0-2.0); EOSINOPHILS # (AUTO) 0.2 /CMM (0.0-0.7); HEMATOCRIT 23 % (39-51); HEMOGLOBIN 7.6 g/dL (13.5-17.5); LYMPHOCYTES # (AUTO) 1.5 /CMM (0.8-4.8); MEAN CORPUSCULAR HEMOGLOBIN 29 PG (26.0-33.0); MEAN CORPUSCULAR HGB CONC 33 g/dl (31.0-36.0); MEAN CORPUSCULAR VOLUME 86 fL (80-96); MONOCYTES # (AUTO) 0.6 /CMM (0.1-1.30); MONOCYTES % (AUTO) 6.9 % (2.0-12.0); NEUTROPHILS # (AUTO) 6.7 /CMM (1.8-8.9); NEUTROPHILS % (AUTO) 73.8 % (43.0-81.0); PLATELET COUNT (AUTO) 357 /CMM (150-450); RDW COEFFICIENT OF VARIATION 16.1 (11.5-15.0); RED BLOOD CELL COUNT(AUTO) 2.66 MIL/uL (4.5-6.0); WHITE BLOOD COUNT (AUTO) 9.1 K/uL (4.3-11.0)
[2017-12-05 08:00] VITALS: BP 133/73
[2017-12-05] MEDS: Fenofibrate 48 MG TABLET PO SCH (08:13)
[2017-12-05] MEDS: PANTOPRAZOLE 40 MG TABLET.DR PO SCH (08:13)
[2017-12-05] MEDS: FERROUS SULFATE (325 MG) 325 MG/TAB TABLET PO SCH (08:13)
[2017-12-05 08:26] LABS: CALCIUM, SERUM 7.5 mg/dL (8.5-10.1); CREATININE 0.8 mg/dL (0.6-1.3); MAGNESIUM 1.8 mg/dL (1.8-2.4); POTASSIUM 3.5 mmol/L (3.5-5.1)
[2017-12-05] MEDS ORDERED: ATORVASTATIN 40 MG TABLET PO SCH (09:00)
[2017-12-05] MEDS ORDERED: PANT40TA2 PO (11:22)
[2017-12-05] MEDS ORDERED: SOD FERRIC GLUC 125 MG in IV NS 0.9% 100 ML IV SCH (14:00)
== END 2017-12-05 11:55 | disposition home or self-care (01) | DRG 377 ==
LOC: ER 09:26 → TELE-TD 11:20 → TELE1 12-04 14:31 → MEDSG1 12-05 08:38
PROVIDERS: ADMIT Internal Medicine; ATTEND Internal Medicine
PROC: 05H533Z Insertion of Infusion Device into Right Subclavian Vein, Percutaneous Approach (ICD-10-PCS; principal; 2017-12-02)
PROC: B546ZZA Ultrasonography of Right Subclavian Vein, Guidance (ICD-10-PCS; principal; 2017-12-02)
PROC: 30233N1 Transfusion of Nonautologous Red Blood Cells into Peripheral Vein, Percutaneous Approach (ICD-10-PCS; principal; 2017-12-02)
PROC: 0DD78ZX Extraction of Stomach, Pylorus, Via Natural or Artificial Opening Endoscopic, Diagnostic (ICD-10-PCS; 2017-12-03)
DX: K57.31 Diverticulosis of large intestine without perforation or abscess with bleeding (principal); E43 Unspecified severe protein-calorie malnutrition; E87.0 Hyperosmolality and hypernatremia; R65.10 Systemic inflammatory response syndrome (SIRS) of non-infectious origin without acute organ dysfunction; D62 Acute posthemorrhagic anemia; E11.9 Type 2 diabetes mellitus without complications; I10 Essential (primary) hypertension; E78.5 Hyperlipidemia, unspecified; Z91.018 Allergy to other foods; Z79.84 Long term (current) use of oral hypoglycemic drugs; E66.9 Obesity, unspecified; K21.9 Gastro-esophageal reflux disease without esophagitis; K44.9 Diaphragmatic hernia without obstruction or gangrene; K42.9 Umbilical hernia without obstruction or gangrene; N40.0 Benign prostatic hyperplasia without lower urinary tract symptoms; Z96.659 Presence of unspecified artificial knee joint; Z86.010 Personal history of colon polyps; N20.0 Calculus of kidney; G89.29 Other chronic pain; Z79.899 Other long term (current) drug therapy; K29.60 Other gastritis without bleeding; K62.1 Rectal polyp; K64.8 Other hemorrhoids; Z68.34 Body mass index [BMI] 34.0-34.9, adult
CPT/HCPCS: 36415; 71045-TC; 80048-TC; 80076-TC; 82962-TC; 83690-TC; 83735-TC; 84100-TC; 84484-TC; 85025-TC; 85027-TC; 85730-TC; 86850-TC; 86921-TC; 88305-TC; 88313-TC; 88342; A4606; C9113; J1815; J2916; J3475; J3490; J7030; J7040; J7050; P9016-BL; Z7610